=== PATIENT | female | born 1985 | race Caucasian/White ===

== ENCOUNTER 2017-05-13 16:15 | Emergency (ER) | payer OTHER ==
[2017-05-13 16:24] VITALS: TEMP 98.4
--- NOTE | 2017-05-13 16:24 | PDOC ---
Rapid Medical Evaluation Chief Complaint: Back Pain Time Seen by Provider: 05/13/17 16:22 Medical Evaluation: Allergies Allergy/AdvReac Type Severity Reaction Status Date / Time No Known Allergies Allergy Verified 05/13/17 16:21 05/13/17 16:23 I have performed a brief in person evaluation of this patient. 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
[2017-05-13 16:25] VITALS: BP 107/62; PULSE 84; BMI 21.2
[2017-05-13] MEDS ORDERED: KETOROLAC TROMETHAMINE 60 MG/2 ML VIAL IM ONE (16:49)
[2017-05-13 17:05] LABS: URINE APPEARANCE SLCLOUDY; URINE BILIRUBIN NEGATIVE (NEGATIVE); URINE BLOOD NEGATIVE (NEGATIVE); URINE COLOR YELLOW; URINE GLUCOSE (UA) NEGATIVE (NEGATIVE); URINE KETONE NEGATIVE (NEGATIVE); URINE NITRITE NEGATIVE (NEGATIVE); URINE PROTEIN NEGATIVE (NEGATIVE); URINE UROBILINOGEN NEGATIVE mg/dL (0.2-1.0)
[2017-05-13] MEDS ORDERED: CYCLOBENZAPRINE HCL 10 MG TABLET (FP) PO ONE (17:09)
--- NOTE | 2017-05-13 17:09 | PDOC ---
History of Present Illness - General Chief Complaint: Back Pain Stated Complaint: BACK PAIN Time Seen by Provider: 05/13/17 16:22 - History of Present Illness Initial Comments: 05/13/17 16:59 CHIEF COMPLAINT: back pain HISTORY OF PRESENT ILLNESS: 32 yo F with hx of scoliosis and chronic low back pain presents to [facility] with severe pain to lower back x 1.5 hours. Patient reports she was at the hair salon getting her hair done when the pain started. She states that the pain is worse with movement "and it feels like my muscles are really tight down there" Denies any loss of sensation to her lower extremities, denies loss of bowel or bladder function. PAST MEDICAL HISTORY: scoliosis, low back pain FAMILY HISTORY: Denies SOCIAL HISTORY: Denies tobacco, alcohol, illicit drug use. SURGICAL HISTORY: Denies ALLERGIES: prochlorperazine REVIEW OF SYSTEMS General/Constitutional: Denies fever or chills. Denies weakness. HEENT: Denies change in vision. Denies ear pain or discharge. Denies sore throat. Cardiovascular: Denies chest pain or shortness of breath. Respiratory: Denies cough, wheezing, or hemoptysis. Gastrointestinal: Denies loss of bowel function. Genitourinary: Denies loss of urinary function. Musculoskeletal: Low back pain. Skin and breasts: Denies rash or easy bruising. PHYSICAL EXAM General Appearance: Well-appearing, appropriately dressed. No apparent distress. HEENT: EOMI, PERRLA. No photophobia, scleral icterus. Respiratory/Chest: Lungs CTAB. Cardiovascular: RRR. S1, S2. Gastrointestinal/Abdominal: Normal bowel sounds. Abdomen soft, non-distended. No tenderness or rebound tenderness. No organomegaly, pulsatile mass, guarding , hernia, hepatomegaly, splenomegaly. Musculoskeletal/Extremities: Tenderness to lower back on palpation and with movement. Sensory discrimination intact to b/l legs. FROM of all extremities, normal capillary refill. Pelvis Stable. No CVA tenderness. No tenderness to extremities, pedal edema, swelling, erythema or deformity. Integumentary: Appropriate color, dry, warm. 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 Fully oriented, alert. Appropriate mood/affect. Motor strength 5/5. No appreciable EOM palsy, facial droop or sensory deficit. Past History - Past Medical History Allergies/Adverse Reactions: Allergies Allergy/AdvReac Type Severity Reaction Status Date / Time prochlorperazine Allergy Verified 05/13/17 16:25 [From Compazine] prochlorperazine edisylate Allergy Verified 05/13/17 16:25 [From Compazine] prochlorperazine maleate Allergy Verified 05/13/17 16:25 [From Compazine] Home Medications: Ambulatory Orders Cyclobenzaprine HCl [Flexeril 10 mg] 10 mg PO HS PRN #7 tablet 05/13/17 Diclofenac Sodium [Voltaren -] 75 mg PO BID #14 tablet. 05/13/17 Asthma: Yes COPD: No Other medical history: SCOLIOSIS - Immunization History Immunization Up to Date: Yes - Suicide/Smoking/Psychosocial Hx Smoking History: Never smoked Have you smoked in the past 12 months: No Information on smoking cessation initiated: No Hx Alcohol Use: No Drug/Substance Use Hx: No Substance Use Type: None *Physical Exam - Vital Signs Last Vital Signs Temp Pulse Resp BP Pulse Ox 98.4 F 84 20 107/62 100 05/13/17 16:22 05/13/17 16:22 05/13/17 16:22 05/13/17 16:22 05/13/17 16:38 Medical Decision Making - Medical Decision Making 05/13/17 17:15 32 yo F with hx of scoliosis and chronic low back pain presents to [facility] with severe pain to lower back x 1.5 hours. Urine preg, UA, UCx -toradol -flexeril - patient BIBEMS, is not driving 05/13/17 17:43 Patient left [facility] and went to [facility] upstairs "to find applesauce for my indigestion." Upon return to [facility], patient was reassessed; she is ambulating well and reports feeling better. Will send rx for flexeril and diclofenac. *DC/Admit/Observation/Transfer Diagnosis at time of Disposition: Low back pain Qualifiers: Chronicity: chronic Back pain laterality: midline Sciatica presence: with sciatica Sciatica laterality: sciatica of left side Qualified Code(s): M54.42 - Lumbago with sciatica, left side - Discharge Dispostion Disposition: HOME Condition at time of disposition: Stable Admit: No - Prescriptions Prescriptions: Cyclobenzaprine HCl [Flexeril 10 mg] 10 mg PO HS PRN #7 tablet PRN Reason: Back Pain Diclofenac Sodium [Voltaren -] 75 mg PO BID #14 tablet.dr - Referrals Referrals: Jorge Luis Michel [Primary Care Provider] - - Patient Instructions Printed Discharge Instructions: DI for Low Back Pain Additional Instructions: Please take medications as prescribed. Follow up with your orthopedist within the next week for further evaluation of your back pain. If you develop any loss of bowel or bladder functions, loss of sensation to your legs, inability to walk, or any new or worsening symptoms, please return to the ER. - Post Discharge Activity
[2017-05-13] MEDS ORDERED: KETOROLAC TROMETHAMINE 60 MG/2 ML VIAL ONE (17:16)
[2017-05-13] MEDS ORDERED: CYCLOBENZAPRINE HCL 10 MG TABLET (FP) ONE (17:16)
[2017-05-13 21:14] LABS: URINE LEUK ESTERASE Negative (NEGATIVE)
== END 2017-05-13 17:51 | disposition home or self-care (01) ==
LOC: JERFT 16:15
PROC: 3E0233Z Introduction of Anti-inflammatory into Muscle, Percutaneous Approach (ICD-10-PCS; principal; 2017-05-13)
DX: M54.42 Lumbago with sciatica, left side (principal); M41.9 Scoliosis, unspecified
CPT/HCPCS: 81003; 84703; 87086; 99281-25